=== PATIENT | female | born 1990 | race Two or more races ===

== ENCOUNTER 2018-03-19 08:59 | Emergency (ER) | payer OTHER ==
[~2018-03-19] VITALS: Ht 165.1 cm; Wt 68.0 kg
--- NOTE | 2018-03-19 09:00 | NUR ---
ED Nurse Note: Pt came from home due to Chest pain on Lt side x 2 days, get worse with movement of arm, coughing. denies SOB.
[2018-03-19 09:06] VITALS: BP 109/51
[2018-03-19] MEDS ORDERED: Methocarbamol 750mg tab ORAL ONE (09:30)
[2018-03-19] MEDS ORDERED: Acetaminophen 500mg (ES) tab ORAL ONE (09:30)
[2018-03-19] MEDS ORDERED: ROBAXIN-750750 MG PO (09:34)
[2018-03-19] MEDS ORDERED: TYLENOL EXTRA500 MG ORAL (09:34)
--- NOTE | 2018-03-19 09:54 | NUR ---
ED Nurse Note: patient is being discharged, cleared by ERMBryn, Dr. Solomon. Discharge instructions/paper/prescription given to the patient, patient verbalized understanding, signed paper. a/o x4. All belongings taken with the patient. patient is ambulatory, steady gait. ID band removed.
--- NOTE | 2018-03-19 10:15 | Emergency Room Report ---
History of Present Illness General Chief Complaint: Chest Pain Source: Patient Present Illness HPI 27-year-old female presents ED complaining of chest pain. Started 2 days ago. Left-sided, sharp, radiating to the shoulder, 9 out of 10. Worse with deep breaths. Denies smoking or drug use. Denies fevers or chills. Denies cough. Denies leg swelling. No other aggravating relieving factors. Denies any other associated symptoms Allergies: Coded Allergies: No Known Allergies (Unverified , 03/19/18) Patient History Past Medical History: none Past Surgical History: none Pertinent Family History: none Social History: Denies: smoking, alcohol use, drug use Now: No Immunizations: UTD Reviewed Nursing Documentation: PMH: Agreed; PSxH: Agreed Nursing Documentation-PMH Past Medical History: No Stated History Review of Systems All Other Systems: negative except mentioned in HPI Physical Exam Vital Signs Date Time Temp Pulse Resp B/P (MAP) Pulse Ox O2 Delivery O2 Flow Rate FiO2 03/19/18 09:00 98.4 95 20 109/51 99 Room Air Sp02 EP Interpretation: reviewed, normal General Appearance: no apparent distress, alert, GCS 15, non-toxic Head: normocephalic Eyes: bilateral eye normal inspection, bilateral eye PERRL ENT: normal ENT inspection Neck: normal inspection Respiratory: lungs clear, normal breath sounds, speaking full sentences, other - reproducible L anterior chest wall pain Cardiovascular #1: regular rate, rhythm, no edema Gastrointestinal: normal inspection Rectal: deferred Genitourinary: no CVA tenderness Musculoskeletal: normal inspection Neurologic: alert, oriented x3, responsive, motor strength/tone normal, sensory intact, speech normal Psychiatric: normal inspection Skin: normal inspection Lymphatic: normal inspection Medical Decision Making Diagnostic Impression: Primary Impression: Chest wall pain ER Course Hospital Course 27-year-old female presents ED complaining of reproducible chest wall pain Differential diagnoses include: Rib fracture, TN/unstable angina, contusion, muscle strain Clinical course Patient placed on stretcher. After initial history, physical exam reveals a young female in no acute distress. There is reproducible left-sided anterior rib pain radiating through the shoulder. No bruising or crepitus. Lungs clear. Vital stable. Patient has no cardiac risk factors. PERC/well's criteria negativeno suspicion for PE EKGnormal sinus rhythm no acute ischemic changes interpreted by me Exam clinically correlating for muscular pain. No suspicion for cardiac. Discussed findings with patient. Reassurance given. Patient given tylenol/ robaxin for pain Safe for discharge close outpatient follow-up. We'll provide clinic referrals I. I feel this is a highly complex case requiring extensive working including EKG/Rhythm strip, Xray/CT/US, Blood/urine lab work, repeat exams while in ED, and administration of strong opiates/narcotics for pain control, admission to hospital or close patient follow up. Diagnosis - chest wall pain Stable and discharged to home with prescription for tylenol/robaxin. Instructed to followup with PMD. Return to ED if symptoms recur or worsen EKG Diagnostic Results Rate: normal Rhythm: NSR ST Segments: no acute changes ASA given to the pt in ED: No Rhythm Strip Diag. Results EP Interpretation: yes Rhythm: NSR, no PVC's, no ectopy Last Vital Signs Date Time Temp Pulse Resp B/P (MAP) Pulse Ox O2 Delivery O2 Flow Rate FiO2 03/19/18 09:52 98.4 95 14 109/57 99 Room Air Status: improved Disposition: HOME, SELF-CARE Condition: Stable Scripts Methocarbamol* (ROBAXIN-750*) 750 Mg Tablet 750 MG PO TID, #21 TAB 0 Refills Prov: Phi Solomon MD 03/19/18 Acetaminophen* (TYLENOL EXTRA STRENGTH*) 500 Mg Tablet 500 MG ORAL Q8H PRN for Prn Headache/Temp > 101, #30 TAB 0 Refills Prov: Phi Solomon MD 03/19/18 Referrals: [facility] Patient Instructions: Chest Wall Pain, Icpi-gq-Qhla Phi Solomon MD Mar 19, 2018 10:15
== END 2018-03-19 09:50 | disposition home or self-care (01) ==
LOC: EMR 09:40
DX: R07.9 Chest pain, unspecified (principal); M25.512 Pain in left shoulder
CPT/HCPCS: 99283

== ENCOUNTER 2018-04-15 20:39 | Emergency (ER) | payer OTHER ==
[~2018-04-15] VITALS: Ht 165.1 cm; Wt 59.0 kg
[~2018-04-15 20:39] MED LIST: ROBAXIN-750750 MG PO; TYLENOL EXTRA500 MG ORAL
[2018-04-15 20:55] VITALS: BP 107/58
--- NOTE | 2018-04-15 21:00 | NUR ---
ED Nurse Note: c/o flu like s/s x 3days (cough, Tubbs, nasal congestion, sorethroat, cp when cough) pt admits to vomiting times 1 when she cough. pt admits to diahhrea. pt presents with occational cough that is somtimes productive with phlegm like appearance. pt is alert and oriented times 4. pt is able to ambulate. skin does not tent. additionally, pt states that she has generalized body pain.
[2018-04-15] MEDS ORDERED: PREDNISONE20 MG ORAL (21:10)
[2018-04-15] MEDS ORDERED: PROMETH-CODEIN 65 ML PO (21:10)
[2018-04-15] MEDS ORDERED: ALBUTEROL SULF8.5 GM INH (21:10)
--- NOTE | 2018-04-15 21:10 | Emergency Room Report ---
History of Present Illness General Chief Complaint: Flu Like Symptoms Source: Patient Present Illness HPI Is a 27-year-old female with no past medical history. She presents with chief point of coughing congestion. Onset for last 3 days. Unable to sleep because of coughing. Hken-pqr-[id number] medicine is not helping. Has chest pain because of the coughing. Worse with inspiration. Worse with lying flat. No history of asthma. Allergies: Coded Allergies: No Known Allergies (Unverified , 04/15/18) Patient History Past Medical History: none, see triage record, old chart reviewed Past Surgical History: none Pertinent Family History: none Social History: Denies: smoking Last Menstrual Period: 04/13/2018 Now: No : 0 Para: 0 Immunizations: other Reviewed Nursing Documentation: PMH: Agreed; PSxH: Agreed Nursing Documentation-PMH Past Medical History: No Stated History Review of Systems Eye: Denies: eye pain, blurred vision ENT: Reports: nose congestion, throat pain; Denies: ear pain, throat swelling Respiratory: Reports: cough, shortness of breath Cardiovascular: Denies: chest pain, palpitations Gastrointestinal: Denies: abdominal pain, diarrhea, nausea, vomiting Musculoskeletal: Denies: back pain, joint pain Skin: Denies: rash Neurological: Denies: headache, numbness Endocrine: Denies: increased thirst, increased urine Hematologic/Lymphatic: Denies: easy bruising All Other Systems: negative except mentioned in HPI Physical Exam Vital Signs Date Time Temp Pulse Resp B/P (MAP) Pulse Ox O2 Delivery O2 Flow Rate FiO2 04/15/18 20:45 98.2 82 18 107/58 96 Room Air vitals normal Sp02 EP Interpretation: reviewed, normal General Appearance: well appearing, no apparent distress, alert Head: normocephalic, atraumatic Eyes: bilateral eye PERRL, bilateral eye EOMI ENT: hearing grossly normal, normal pharynx Neck: full range of motion, supple, no meningismus Respiratory: chest non-tender, other - Coughing fits with inspiration Cardiovascular #1: regular rate, rhythm, no murmur Gastrointestinal: normal bowel sounds, non tender, no mass, no organomegaly, no bruit, non-distended Musculoskeletal: back normal, gait/station normal, normal range of motion Psychiatric: mood/affect normal Skin: warm/dry Medical Decision Making Diagnostic Impression: Primary Impression: Acute bronchospasm due to viral infection ER Course Patient with a viral illness with bronchospasm. No evidence of pneumonia, ACS, PE, dissection to name a few. We'll discharge home. Last Vital Signs Date Time Temp Pulse Resp B/P (MAP) Pulse Ox O2 Delivery O2 Flow Rate FiO2 04/15/18 20:45 98.2 82 18 107/58 96 Room Air Status: improved Disposition: HOME, SELF-CARE Condition: Stable Scripts Promethazine HCl/Codeine (Prometh-Codein 6.25-10 mg/5 ml) 5 Ml Syrup 5 ML PO Q6HR, #120 ML Prov: Ollie Kaur MD 04/15/18 Prednisone* (PREDNISONE*) 20 Mg Tablet 40 MG ORAL DAILY, #8 TAB Prov: Ollie Kaur MD 04/15/18 Albuterol Sulfate* (ALBUTEROL SULFATE MDI*) 8.5 Gm Hfa.aer.ad 2 PUFF INH Q4H PRN for cough/wheezing, #1 EA 0 Refills Prov: Ollie Kaur MD 04/15/18 Additional Instructions: Increase fluids. Follow-up with your doctor in 7 days. Return if worse. Ollie Kaur MD Apr 15, 2018 21:10
[2018-04-15] MEDS ORDERED: Albuterol ud Inhalation HHN ONE (21:15)
[2018-04-15 22:12] VITALS: BP 103/60
--- NOTE | 2018-04-15 22:16 | NUR ---
ED Nurse Note: Pt is DC per ERMD orders. pt is alert and oriented times 4 and understands all DC notes and instructions. pt is instructed to follow up with main provider as soon as possible. pt is instructed to return to ER if any variance in condition. pt left with all belongings as well as DC notes and instructions. pt vital signs, condition and status is reported to ERMD prior to DC. pt is stable for DC. pt vital signs is stable. pt is able to ambulate. pt ID band removed.
[2018-04-15 22:17] VITALS: BP 103/60
[2018-04-16] MEDS ORDERED: TESSALON PERLE100 MG ORAL (19:07)
[2018-04-16] MEDS ORDERED: IBUPROFEN600 MG ORAL (19:07)
[2018-04-16] MEDS ORDERED: CEPHALEXIN500 MG ORAL (19:07)
[2018-04-16] MEDS ORDERED: NKM ×2 (22:38→23:13)
== END 2018-04-15 22:15 | disposition home or self-care (01) ==
LOC: EMR 21:07
DX: B34.9 Viral infection, unspecified (principal); J98.01 Acute bronchospasm
CPT/HCPCS: 94640; 94664; 99284; J7512

== ENCOUNTER 2018-04-16 16:12 | Inpatient (IN) | payer OTHER ==
[~2018-04-16] VITALS: Ht 165.1 cm; Wt 70.8 kg
[~2018-04-16 16:12] MED LIST changes: +ALBUTEROL SULF8.5 GM INH; +PREDNISONE20 MG ORAL; +PROMETH-CODEIN 65 ML PO
--- NOTE | 2018-04-16 16:24 | NUR ---
ED Nurse Note: patient walked into ED c/o flu like symptom, coughing, nasal congestion, sorethroat and cp when coughing, for 3 days. pt is alert and oriented times 4. pt is able to ambulate. patient has generalized body pain.
[2018-04-16 16:38] VITALS: BP 98/56
[2018-04-16] MEDS ORDERED: Methocarbamol 500mg tab ORAL ONE (16:45)
[2018-04-16] MEDS ORDERED: Albuterol ud Inhalation HHN ONE (16:45)
--- NOTE | 2018-04-16 17:05 | Emergency Room Report ---
History of Present Illness General Chief Complaint: Flu Like Symptoms Source: Patient (Jean Paula) Present Illness HPI 27-year-old female patient presents the ER complaining of cough and congestion for the past 3 days. Patient was seen here in the ER yesterday for similar symptoms. Reports symptoms still present today. Reports took medication yesterday as previously instructed. Patient currently febrile in the ER. States did not take any Tylenol. Denies recent travel. Denies history of asthma. Denies hemoptysis. Reports sore throat. Reports chest pain with cough. reports pain is reproducible. Denies history of heart attack. Denies history of heart disease. Denies other aggravating or relieving factors. (Jean Paula) Allergies: Coded Allergies: No Known Allergies (Unverified , 04/15/18) Patient History Past Medical History: see triage record Now: No Reviewed Nursing Documentation: PMH: Agreed; PSxH: Agreed (Jean Paula) Nursing Documentation-PMH Past Medical History: No Stated History (Jean Paula) Review of Systems All Other Systems: negative except mentioned in HPI (Jean Paula) Physical Exam Vital Signs Date Time Temp Pulse Resp B/P (MAP) Pulse Ox O2 Delivery O2 Flow Rate FiO2 04/16/18 16:18 100.2 100 22 98/56 98 Room Air Sp02 EP Interpretation: reviewed, normal General Appearance: well appearing, no apparent distress, alert, GCS 15, non- toxic Head: normocephalic, atraumatic Eyes: bilateral eye normal inspection, bilateral eye PERRL ENT: hearing grossly normal, normal pharynx, no angioedema, normal voice, uvula midline, moist mucus membranes Neck: full range of motion Respiratory: lungs clear, normal breath sounds, no rhonchi, no respiratory distress, no accessory muscle use, no wheezing, speaking full sentences, other - Chest tender to palpation, no flail chest, no deformity Cardiovascular #1: regular rate, rhythm, no edema Gastrointestinal: non tender, soft, no mass, non-distended, no guarding, no rebound Musculoskeletal: back normal, digits/nails normal, gait/station normal, normal range of motion, non-tender Neurologic: alert, oriented x3, responsive, motor strength/tone normal, sensory intact Psychiatric: mood/affect normal Skin: no rash (Jean Paula) Medical Decision Making PA Attestation Dr. Espino is my supervising Physician whom patient management has been discussed with. (Jean Paula) Diagnostic Impression: Primary Impression: Influenza-like symptoms Additional Impressions: Urinary tract infection Hypotension Bronchitis ER Course Pt. presents to the ED c/o cough, congestion, flulike symptoms, generalized muscle aches and pains. Ddx considered but are not limited to influenza, viral URI, pericarditis, costochondritis, pneumonia, UTI, dehydration, anemia. Vital signs: are WNL, pt. is afebrile ER COURSE: Provided with Motrin and Robaxin due to patient complaints of muscle pain. Provided with breathing treatment. Reports breathing symptoms improved. CBC and CMP unremarkable UA shows likely UTI, will provide with Rocephin in the ER.. Influenza swab negative. Chest x-ray shows no focal consolidation consistent with pneumonia. Does not require antibiotics at this time for treating pneumonia. Patient seen and evaluated by Dr. Espino, agrees with assessment and treatment plan. - Please note that this Emergency Department Report was dictated using [employer] assembly supervisor technology software, occasionally this can lead to erroneous entry secondary to interpretation by the dictation equipment. Labs Test 04/16/18 17:05 White Blood Count 9.4 K/UL (4.8-10.8) Red Blood Count 4.61 M/UL (4.20-5.40) Hemoglobin 13.3 G/DL (12.0-16.0) Hematocrit 41.1 % (37.0-47.0) Mean Corpuscular Volume 89 FL (80-99) Mean Corpuscular Hemoglobin 28.8 PG (27.0-31.0) Mean Corpuscular Hemoglobin Concent 32.3 G/DL (32.0-36.0) Red Cell Distribution Width 12.8 % (11.6-14.8) Platelet Count 203 K/UL (150-450) Mean Platelet Volume 6.8 FL (6.5-10.1) Neutrophils (%) (Auto) 81.2 % (45.0-75.0) Lymphocytes (%) (Auto) 12.6 % (20.0-45.0) Monocytes (%) (Auto) 5.2 % (1.0-10.0) Eosinophils (%) (Auto) 0.1 % (0.0-3.0) Basophils (%) (Auto) 0.9 % (0.0-2.0) Urine Color Yellow Urine Appearance Cloudy Urine pH 6 (4.5-8.0) Urine Specific [place] 1.020 (1.005-1.035) Urine Protein 2+ (NEGATIVE) Urine Glucose (UA) Negative (NEGATIVE) Urine Ketones 1+ (NEGATIVE) Urine Blood 1+ (NEGATIVE) Urine Nitrite Negative (NEGATIVE) Urine Bilirubin Negative (NEGATIVE) Urine Urobilinogen 1 MG/DL (0.0-1.0) Urine Leukocyte Esterase 3+ (NEGATIVE) Urine RBC 2-4 /HPF (0 - 2) Urine WBC 30-40 /HPF (0 - 2) Urine Squamous Epithelial Cells Moderate /LPF (NONE/OCC) Urine Bacteria Many /HPF (NONE) Urine HCG, Qualitative Negative (NEGATIVE) Sodium Level 139 MMOL/L (136-145) Potassium Level 3.7 MMOL/L (3.5-5.1) Chloride Level 104 MMOL/L (98-107) Carbon Dioxide Level 26 MMOL/L (21-32) Anion Gap 9 mmol/L (5-15) Blood Urea Nitrogen 4 mg/dL (7-18) Creatinine 1.0 MG/DL (0.55-1.30) Estimat Glomerular Filtration Rate > 60 mL/min (>60) Glucose Level 106 MG/DL (74-106) Calcium Level 8.6 MG/DL (8.5-10.1) Total Bilirubin 0.2 MG/DL (0.2-1.0) Aspartate Amino Transf (AST/SGOT) 16 U/L (15-37) Alanine Aminotransferase (ALT/SGPT) 18 U/L (12-78) Alkaline Phosphatase 73 U/L (46-116) Total Protein 7.3 G/DL (6.4-8.2) Albumin 3.7 G/DL (3.4-5.0) Globulin 3.6 g/dL Albumin/Globulin Ratio 1.0 (1.0-2.7) (Jean Paula P.A.) ER Course Patient was noted to have initial hypotension tachycardia. She appears to have a flulike illness. CT of the chest read by radiology showed no evidence of acute aortic dissection or pulmonary embolism . Dr. Pranav Shepherd was contacted for inpatient management due to panel physician and persistent tachycardia (Jesse Espino MD) EKG Diagnostic Results Rate: tachycardiac Rhythm: NSR ST Segments: no acute changes ASA given to the pt in ED: No PA Scribe Text Joseph Paula PA-C (Nisa,Jean P.A.) Rhythm Strip Diag. Results EP Interpretation: yes Rate: 114 Rhythm: NSR, no PVC's, no ectopy PA Scribe Text Joseph SYLVESTER-C (Nisa,Jean P.A.) Chest X-Ray Diagnostic Results Chest X-Ray Diagnostic Results : Chest X-Ray Ordered: Yes # of Views/Limited/Complete: 1 View Indication: Chest Pain EP Interpretation: Yes PA Xray: Interpretation reviewed, by supervising MD, and agrees with findings. Interpretation: no consolidation, no effusion, no pneumothorax, no acute cardiopulmonary disease Impression: No acute disease PA Scribe Text Joseph SYLVESTER-Charlie (NisaJean P.A.) Last Vital Signs Date Time Temp Pulse Resp B/P (MAP) Pulse Ox O2 Delivery O2 Flow Rate FiO2 04/16/18 16:38 100.2 100 22 98/56 98 Room Air (Jean Paula P.A.) Status: improved (Jesse Espino MD) Disposition: ADMITTED INPATIENT Condition: Serious Patient Instructions: Influenza, Adult, Mrde-vq-Oiht, Urinary Tract Infection, [id number] Jean Paula P.A. Apr 16, 2018 17:05 Jesse Espino MD Apr 16, 2018 22:21
[2018-04-16 17:14] LABS: APPEARANCE,URINE CLOUDY; BASOPHILS % (AUTO) 0.9 % (0.0-2.0); BILIRUBIN, URINE NEGATIVE (NEGATIVE); COLOR,URINE YELLOW; EOSINOPHILS % (AUTO) 0.1 % (0.0-3.0); GLUCOSE, URINE (UA) NEGATIVE (NEGATIVE); HEMATOCRIT 41.1 % (37.0-47.0); HEMOGLOBIN 13.3 G/DL (12.0-16.0); KETONES,URINE 1+ (NEGATIVE); LEUKOCYTE ESTERASE ,URINE 3+ (NEGATIVE); LYMPHOCYTES % (AUTO) 12.6 % (20.0-45.0); MEAN CORPUSCULAR VOLUME 89 FL (80-99); MONOCYTES % (AUTO) 5.2 % (1.0-10.0); NEUTROPHILS % (AUTO) 81.2 % (45.0-75.0); NITRITE,URINE NEGATIVE (NEGATIVE); PH,URINE 6 (4.5-8.0); PLATELET COUNT 203 K/UL (150-450); PROTEIN,URINE 2+ (NEGATIVE); RED BLOOD COUNT 4.61 M/UL (4.20-5.40); RED CELL DISTRIBUTION WIDTH 12.8 % (11.6-14.8); UROBILINOGEN,URINE 1 MG/DL (0.0-1.0); WHITE BLOOD COUNT 9.4 K/UL (4.8-10.8)
[2018-04-16 17:27] LABS: ANION GAP 9 mmol/L (5-15); BLOOD UREA NITROGEN 4 mg/dL (7-18); CALCIUM 8.6 MG/DL (8.5-10.1); CARBON DIOXIDE 26 MMOL/L (21-32); CHLORIDE 104 MMOL/L (98-107); POTASSIUM 3.7 MMOL/L (3.5-5.1); SODIUM 139 MMOL/L (136-145)
[2018-04-16 17:32] LABS: ALANINE AMINOTRANSFERASE 18 U/L (12-78); ALBUMIN 3.7 G/DL (3.4-5.0); ALKALINE PHOSPHATASE 73 U/L (46-116); ASPARTATE AMINO TRANSFERASE 16 U/L (15-37); BILIRUBIN,TOTAL 0.2 MG/DL (0.2-1.0)
[2018-04-16] MEDS ORDERED: TESSALON PERLE100 MG ORAL (19:07)
[2018-04-16] MEDS ORDERED: CEPHALEXIN500 MG ORAL (19:07)
[2018-04-16] MEDS ORDERED: IBUPROFEN600 MG ORAL (19:07)
[2018-04-16 19:13] VITALS: BP 87/47
--- NOTE | 2018-04-16 19:20 | NUR ---
HAND-OFF: Report given to Ene SCHUSTER.
--- NOTE | 2018-04-16 19:25 | NUR ---
ED Nurse Note: pt was transfered to monitor bed, pt connected to monitor. report given to vinh kebede
[2018-04-16] MEDS ORDERED: cefTRIAXone 1 GM in NS 55 ML IVPB ONE (19:30)
[2018-04-16] MEDS ORDERED: Isovue-370 150ml vial INJ PRN (20:00)
[2018-04-16 20:20] VITALS: BP 99/56
--- NOTE | 2018-04-16 20:30 | NUR ---
ED Nurse Note: Pt went to CT scan.
--- NOTE | 2018-04-16 21:00 | NUR ---
ED Nurse Note: PT C/O THROAT PAIN 09/24 NOTIFIED NGA BURDEN WAITING FOR NEW ORDERS
[2018-04-16] MEDS ORDERED: Lidocaine 2% Visc 15ml soln ORAL ONE (21:15)
[2018-04-16 21:19] VITALS: BP 107/69
--- NOTE | 2018-04-16 21:30 | NUR ---
ED Nurse Note: ATTEMPTED TO GIVE TELEPHONE REPORT, PER ANUP RN CALL BACK IN 5 MIN
--- NOTE | 2018-04-16 21:40 | NUR ---
ED Nurse Note: TELEPHONE REPORT GIVEN TO LANDEN HEBERT. PER LANDEN HEBERT BED WILL BE READY IN 10 MIN Addendum: 04/16/18 at 2240 by PDELEON ED Nurse Note: PT NO LONGER GOING TO TELE.
[2018-04-16] MEDS ORDERED: NKM ×2 (22:38→23:13)
--- NOTE | 2018-04-16 22:41 | NUR ---
ED Nurse Note: TELEPHONE REPORT GIVEN TO LANDEN LI.
--- NOTE | 2018-04-16 22:45 | NUR ---
NURSE NOTES: Received the report from LANDEN Kaufman. Waiting for the pt's arrival.
--- NOTE | 2018-04-16 22:55 | NUR ---
ED Nurse Note: PT WAS SENT UP WITH LANDEN EVANS PT IS STABLE AOX4, BP WAS 108/72 HR 103 ALL BELONGING WITH PT. PT SKIN INTACT, NO DISTRESS
--- NOTE | 2018-04-16 23:00 | NUR ---
NURSE NOTES: Pt has arrived in the unit. Pt is in stable condition. AAOX4. Able to make needs known. C/o generalized pain, rated 7/10. IV site is patent and intact. Skin is intact. Bed in lowest position. Bed alarm is on. Call light within reach. Will continue to monitor.
[2018-04-16 23:33] VITALS: BP 109/72
[2018-04-17] VITALS (7 sets, daily range): BP systolic 95–123; BP diastolic 60–75
[2018-04-17] MEDS: Azithromycin 500 MG in D5W 275 ML IV SCH ×2
--- NOTE | 2018-04-17 | NUR ---
NURSE NOTES: NURSE NOTES: Sudafed not given, because the med is not available in the hospital. Talked to [facility] pharmacist, she suggested to wait for the hospital pharmacy to open to ask for alternative medication. Charge Nurse Kathi made aware.
[2018-04-17] MEDS: NS w/KCl 20mEq 1,000 ML IV SCH ×2 (01:07→10:08)
[2018-04-17] MEDS: Albuterol/Ipratropium 3ml neb HHN SCH ×6 (03:45→23:00)
[2018-04-17] MEDS: Pseudoephedrine 30mg tab ORAL SCH ×3 (06:57→11:50)
--- NOTE | 2018-04-17 07:44 | NUR ---
HAND-OFF: Report given to LANDEN Wood. LANDEN Huynh endorsed to LANDEN Wood to follow up with the code status of the pt.
--- NOTE | 2018-04-17 07:49 | NUR ---
NURSE NOTES: Received pt from LANDEN SZYMANSKI. Pt is alert and orient x4. No SOB or acute respiratory distress noted. pt has intact iv access RAC 20G is running well. all needs attended, bed is locked and is in the lowest position, call light within easy reach. will continue to monitor.
--- NOTE | 2018-04-17 08:30 | NUR ---
NURSE NOTES: Called Dr kellogg regarding V/S and T and HR, left6 massage waiting to call back. will continue to monitor.
[2018-04-17] MEDS: Heparin 5000 units/ml inj SUBQ SCH ×2 (08:47→20:29)
--- NOTE | 2018-04-17 09:11 | Diagnostic Imaging Report ---
Indication: Chest pain Technique: One view of the chest Comparison: none Findings: Lungs and pleural spaces are clear. Heart size is normal Impression: No acute process This agrees with the preliminary interpretation provided overnight by [facility] teleradiology service.
[2018-04-17 09:15] LABS: BASOPHILS % (AUTO) 0.7 % (0.0-2.0); EOSINOPHILS % (AUTO) 0.1 % (0.0-3.0); HEMATOCRIT 37.3 % (37.0-47.0); MEAN CORPUSCULAR VOLUME 89 FL (80-99); MONOCYTES % (AUTO) 10.1 % (1.0-10.0); NEUTROPHILS % (AUTO) 63.2 % (45.0-75.0); PLATELET COUNT 151 K/UL (150-450); RED BLOOD COUNT 4.21 M/UL (4.20-5.40); RED CELL DISTRIBUTION WIDTH 13.3 % (11.6-14.8); WHITE BLOOD COUNT 5.1 K/UL (4.8-10.8)
[2018-04-17 09:22] LABS: ALANINE AMINOTRANSFERASE 43 U/L (12-78); ALBUMIN 3.1 G/DL (3.4-5.0); ALBUMIN/GLOBULIN RATIO 1.1 (1.0-2.7); ALKALINE PHOSPHATASE 64 U/L (46-116); ANION GAP 9 mmol/L (5-15); ASPARTATE AMINO TRANSFERASE 60 U/L (15-37); BILIRUBIN,TOTAL 0.3 MG/DL (0.2-1.0); BLOOD UREA NITROGEN 3 mg/dL (7-18); CALCIUM 8.2 MG/DL (8.5-10.1); CARBON DIOXIDE 25 MMOL/L (21-32); CHLORIDE 105 MMOL/L (98-107); CREATININE 0.7 MG/DL (0.55-1.30); POTASSIUM 3.5 MMOL/L (3.5-5.1); SODIUM 138 MMOL/L (136-145)
--- NOTE | 2018-04-17 10:15 | NUR ---
NURSE NOTES: HR 102/110 T 100.6, Called Dr kellogg again spoke with bjorn KILPATRICK, left massage waiting to call back. will continue to monitor.
--- NOTE | 2018-04-17 10:40 | NUR ---
NURSE NOTES: Dr kellogg called back and he is aware about V/S , No new order. will continue to monitor.
--- NOTE | 2018-04-17 11:31 | Diagnostic Imaging Report ---
ndication: Chest pain Technique: IV administration nonionic contrast. Spiral acquisitions obtained from the lung bases to the lung apices. Multiplanar and 3-D reconstructions were generated. Total dose length product 556.74 mGycm. CTDIvol(s) 18.92 mGy. Dose reduction achieved using automated exposure control Comparison: none Findings: Pulmonary arterial opacification is adequate. No intraluminal filling defects or other findings to suggest acute pulmonary embolus demonstrated. No pulmonary arterial dilatation or right ventricular dilatation. Normal heart size. No evidence of thoracic aortic aneurysm or dissection. Normal branching anatomy of the great neck vessels. The included lung bases demonstrate posterior dependent atelectatic changes. No infiltrates, effusions, masses, or nodules. No pericardial effusion. No mediastinal or hilar mass or adenopathy. No axillary or chest wall mass or adenopathy. Included upper abdominal anatomy is unremarkable Impression: Negative for acute pulmonary embolus or other acute thoracic pathology Posterior dependent atelectatic changes This agrees with the preliminary interpretation provided overnight by Dr. Burnham The CT scanner at [facility] is accredited by the [employer] and the scans are performed using protocols designed to limit radiation exposure to as low as reasonably achievable to attain images of sufficient resolution adequate for diagnostic evaluation.
[2018-04-17] MEDS ORDERED: Guaifenesin/DM 10ml syrup ORAL PRN (14:00)
--- NOTE | 2018-04-17 15:19 | Cardiology Report ---
APPROVED REPORT EKG Measurement Heart [id number] Sinus tachycardia Otherwise normal ECG
--- NOTE | 2018-04-17 16:45 | Consultation ---
DATE OF CONSULTATION: 04/17/2018 INFECTIOUS DISEASES CONSULTATION This consult is for coverage of Dr. Barton. CONSULTING PHYSICIAN: Narendra Chowdhury M.D. PRIMARY ATTENDING PHYSICIAN: Pranav Shepherd M.D. REASON FOR CONSULTATION: UTI, bronchitis, upper respiratory infection. HISTORY OF PRESENT ILLNESS: This is a 27-year-old female admitted yesterday from home complaining of cough, congestion, sore throat. The patient's symptoms started three days before admission, started to have fever up to 102.6 in the hospital. PAST MEDICAL HISTORY: Insignificant. MEDICATIONS: Getting ceftriaxone, heparin, albuterol ipratropium inhaler, azithromycin, Tylenol, Sudafed, sodium chloride. ALLERGIES: No known drug allergies. SOCIAL HISTORY: Originally from [place] [facility], student, studies Business. Smoker. Occasionally drinks alcohol. Single,. REVIEW OF SYSTEMS: Have headache, sore throat, stuffy nose, coughing that is productive. No nausea. No vomiting. No diarrhea. No dysuria. PHYSICAL EXAMINATION: VITAL SIGNS: Temperature 99.9, pulse 110, blood pressure 105/61. GENERAL APPEARANCE: Seems normal weight. Awake, alert, oriented x3. HEAD AND NECK: Hypertrophy of nasal mucosa. HEART: Tachycardic, regular. LUNGS: Clear. ABDOMEN: Soft and nontender. EXTREMITIES: No edema. NEUROLOGIC: Awake, alert, oriented x3. No focal weakness. LABORATORY AND DIAGNOSTIC DATA: WBC 5.1, hemoglobin 12, hematocrit 37.3, platelets 151. Sodium 138, potassium 3.5, chloride 105, bicarbonate 25, BUN 3, creatinine 0.7, AST 60. Albumin 3.1. The patient had CT scan of the chest to rule out pulmonary emboli that showed atelectasis, otherwise was negative. UA showed WBC of 30 to 40, leukocyte esterase 3+, protein 2+. IMPRESSION: Pyuria may have urinary tract infection, upper respiratory infection, likely bronchitis without pneumonia, had fever. RECOMMENDATION: We will continue with ceftriaxone, Zithromax, and bronchodilator. At the end of my exam, I thank Dr. Shepherd, for involving me in the care of this patient. Narendra Chowdhury M.D. DR: Jyothi JOB#: [id number] CC: CALLIE
--- NOTE | 2018-04-17 17:00 | History and Physical Report ---
DATE OF ADMISSION: 04/16/2018 REASON FOR ADMISSION: Fevers, chills, cough, and shortness of breath. HISTORY OF PRESENT ILLNESS: This 27-year-old female returned to the emergency room on the day of admission complaining of worsening cough and congestion. She was seen at this facility yesterday and sent home on oral therapy. Her symptoms have been ongoing for three days and have not improved. She has high fevers and congestion with cough and scant sputum production. She also has a sore throat, but no other constitutional symptoms. She denies any abdominal pain, nausea, or vomiting. No diarrhea. She has not taken any antipyretics at home and she denies any exposure to ill contacts or recent travel. ALLERGIES: None. MEDICATIONS: None. PAST MEDICAL HISTORY: Unremarkable. SOCIAL HISTORY: Negative for smoking, alcohol, or substance abuse. REVIEW OF SYSTEMS: A 10-point system review was otherwise negative. PHYSICAL EXAMINATION: VITAL SIGNS: Blood pressure 98/56, heart rate 100, respiratory rate 22, temperature 100.2, oxygen sats 98%. GENERAL: Ill appearing. HEENT: Mild tenderness in the sinus region. Injected oropharynx with no exudate or thrush. NECK: Supple with no adenopathy. LUNGS: Few rhonchi. No wheezing. CARDIAC: Regular rhythm. Rapid rate. Normal S1, S2. No murmur. ABDOMEN: Soft and nontender. EXTREMITIES: No edema. SKIN: Without rash. NEUROLOGIC: Nonfocal. DIAGNOSTIC AND LABORATORY DATA: Influenza swab was negative. Chest x-ray with no acute process. White count 9.4, hemoglobin 13.3. Urinalysis with 30 to 40 white cells. Chemistry panel within normal limits. EKG, sinus tachycardia. IMPRESSION: 1. Upper respiratory infection likely bronchitis possible sinusitis. 2. Urinary tract infection. 3. Hypovolemia. 4. Dehydration. 5. Secondary sinus tachycardia. PLAN: 1. Antipyretic. 2. Ochoa culture. 3. Broad-spectrum empiric antibiotics. 4. Imaging of the sinuses to follow. 5. DVT prophylaxis. 6. Antitussives. 7. Decongestants. Pranav Shepherd M.D. DR: KALIA JOB#: [id number] CC:
--- NOTE | 2018-04-17 17:06 | Diagnostic Imaging Report ---
Indications: Flulike symptoms, coughing, nasal congestion Technique: Spiral images obtained through the facial bones. No IV contrast utilized, reason not stated. Multiplanar reconstructions were generated.Total dose length product 559 mGycm. CTDIvol(s) 28 mGy. Dose reduction achieved using automated exposure control Comparison: none Findings: There is minimal anterior ethmoid sinus disease bilaterally. There is minimal mucosal thickening involving the medial right maxillary wall. Sinuses are otherwise clear. There is suggestion of mucosal thickening in the region of the maxillary ostia bilaterally, and patency cannot be confirmed. Unusual bone fragment is seen along the lateral aspect of the nasal bone on the left, could represent an old chip fracture. No acute fractures. No significant soft tissue swelling. The upper aerodigestive tract is unremarkable. The dentition is unremarkable. Impression: Minimal right maxillary and anterior ethmoid sinus mucosal thickening. There is mucosal thickening in the region of the bilateral maxillary ostia, and patency of these structures cannot be confirmed Possible old chip fracture along the lateral aspect of the nasal bone on the left The CT scanner at [facility] is accredited by the [employer] and the scans are performed using protocols designed to limit radiation exposure to as low as reasonably achievable to attain images of sufficient resolution adequate for diagnostic evaluation.
--- NOTE | 2018-04-17 17:30 | Progress Note ---
DATE: 04/17/2018 SUBJECTIVE: The patient continues to feel poorly with high fever spikes, chills, and tachycardia. No nausea or vomiting, still has a cough and congestion. OBJECTIVE: VITAL SIGNS: Blood pressure 95/60, pulse 110, temperature 102.6 max and now 100.6, oxygen saturation on room air is 92% to 99%. HEENT: Sinus tenderness. Oropharynx with mild injection. No thrush or exudate. LUNGS: Few rhonchi. No wheezing. CARDIAC: Regular rhythm. Rapid rate. Normal S1 and S2. ABDOMEN: Soft and nontender. EXTREMITIES: With no edema. There is no CVA tenderness. LABORATORY DATA: White count 5, hemoglobin 12. Chemistry panel within normal limits. Albumin 3.1. IMPRESSION: 1. Upper respiratory tract infection. 2. Acute bronchitis. 3. Possible sinusitis. 4. Urinary tract infection. 5. Mild protein-calorie malnutrition. 6. Fevers, likely viral syndrome. 7. Hypovolemia and dehydration. PLAN: 1. Continue IV fluid hydration. 2. Continue empiric antibiotics. 3. CT scan of the sinus pending. 4. Continue antitussive, antipyretics, and decongestant. 5. Infectious Diseases consultation was appreciated. Pranav Shepherd M.D. DR: Nydia JOB#: [id number] CC:
[2018-04-17] MEDS ORDERED: cefTRIAXone 1 GM in D5W 55 ML IVPB SCH (19:30)
--- NOTE | 2018-04-17 19:30 | NUR ---
NURSE NOTES: Received a report from LANDEN Wood. Pt is in stable condition. AAOX4. Able to make needs known. No respiratory distress noted. On room air. No c/o pain/discomfort. IV site is patent and intact. Bed in lowest position. Bed alarm is on. Call light within reach. Will continue to monitor.
--- NOTE | 2018-04-17 19:35 | NUR ---
HAND-OFF: Report given to LANDEN SZYMANSKI.
--- NOTE | 2018-04-17 19:47 | NUR ---
CASE MANAGEMENT: REVIEW PRESENTED TO ED FROM HOME CC: FLU LIKE SYMPTOMS . FEVER T 100.3 SI: HYPOTENSION . UTI T 101.2 HR 110 RR 28 BP 87/47 SAT 98% ROOM AIR NEUT 81.2 LYMPH 12.6 MONO 10.1 IS: TYLENOL PO X1 MOTRIN PO X1 NS IVF BOLUS X1 ALBUTEROL HHN X1 ROBAXIN PO X1 CEFTRIAXONE IV X1 PATIENT ADMITTED TO MED/SURG UNIT 04/16/2018 DCP: PATIENT IS FROM HOME
[2018-04-18] VITALS: BP 106/55
[2018-04-18] MEDS: NS w/KCl 20mEq 1,000 ML IV SCH ×4 (00:35→20:44)
[2018-04-18] MEDS: Azithromycin 500 MG in D5W 275 ML IV SCH (00:36)
[2018-04-18] MEDS: Albuterol/Ipratropium 3ml neb HHN SCH ×6 (03:00→22:49)
[2018-04-18 03:39] VITALS: BP 104/61
[2018-04-18] MEDS ORDERED: Pseudoephedrine 30mg tab ORAL PRN (06:00)
--- NOTE | 2018-04-18 06:39 | General Progress Note ---
Assessment/Plan Problem List: (1) Chest wall pain ICD Codes: R07.89 - Other chest pain SNOMED: 452773317 (2) Urinary tract infection ICD Codes: N39.0 - Urinary tract infection, site not specified SNOMED: 10970723 (3) Influenza-like symptoms ICD Codes: R68.89 - Other general symptoms and signs SNOMED: 267769828 (4) Bronchitis ICD Codes: J40 - Bronchitis, not specified as acute or chronic SNOMED: 81554911 (5) Hypotension ICD Codes: I95.9 - Hypotension, unspecified SNOMED: 09260613 Status: stable Assessment/Plan ivf abx follow up cultures supportive care Subjective ROS Limited/Unobtainable: No Constitutional: Reports: chills, fever, malaise, weakness HEENT: Reports: no symptoms Cardiovascular: Reports: no symptoms Respiratory: Reports: cough Gastrointestinal/Abdominal: Reports: no symptoms Genitourinary: Reports: no symptoms Neurologic/Psychiatric: Reports: no symptoms Endocrine: Reports: no symptoms Hematologic/Lymphatic: Reports: no symptoms Allergies: Coded Allergies: No Known Allergies (Unverified , 04/15/18) Subjective still does not feel well. +fevers. on abx. Ct noted- ?sinusitis. Objective Last 24 Hour Vital Signs Date Time Temp Pulse Resp B/P (MAP) Pulse Ox O2 Delivery O2 Flow Rate FiO2 04/18/18 04:14 99.1 04/18/18 03:39 100.8 83 18 104/61 (75) 99 04/18/18 03:10 Room Air 21 04/18/18 03:10 Room Air 21 04/18/18 00:00 97.9 92 18 106/55 (72) 95 04/17/18 23:37 Room Air 21 04/17/18 23:37 Room Air 21 04/17/18 21:00 Room Air 04/17/18 20:18 92 18 98 Room Air 21 04/17/18 20:17 92 18 96 Room Air 21 04/17/18 20:00 99.7 85 17 108/65 (79) 96 04/17/18 16:00 101.8 77 19 123/75 (91) 96 04/17/18 15:10 81 18 99 Room Air 21 04/17/18 14:54 83 18 99 Room Air 21 04/17/18 12:00 99.9 110 20 105/61 (76) 95 04/17/18 10:43 95 16 99 Room Air 21 04/17/18 10:34 99 18 92 Room Air 21 04/17/18 10:00 100.6 110 19 95/60 (72) 97 04/17/18 09:00 Room Air 04/17/18 08:00 102.6 120 19 95/60 (72) 98 04/17/18 07:24 90 16 99 Nasal Cannula 1.0 24 04/17/18 07:14 86 18 92 Room Air 21 Intake and Output 04/17/18 04/18/18 18:59 06:59 Intake Total 2080 ml 1465 ml Balance 2080 ml 1465 ml Intake Oral 880 ml 480 ml IV Total 1200 ml 985 ml # Voids 5 4 Laboratory Tests 04/17/18 07:20: White Blood Count 5.1, Red Blood Count 4.21, Hemoglobin 12.0, Hematocrit 37.3, Mean Corpuscular Volume 89, Mean Corpuscular Hemoglobin 28.4, Mean Corpuscular Hemoglobin Concent 32.0, Red Cell Distribution Width 13.3, Platelet Count 151, Mean Platelet Volume 8.1, Neutrophils (%) (Auto) 63.2, Lymphocytes (%) (Auto) 26.0, Monocytes (%) (Auto) 10.1H, Eosinophils (%) (Auto) 0.1, Basophils (%) ( Auto) 0.7, Sodium Level 138, Potassium Level 3.5, Chloride Level 105, Carbon Dioxide Level 25, Anion Gap 9, Blood Urea Nitrogen 3L, Creatinine 0.7, Estimat Glomerular Filtration Rate > 60, Glucose Level 91, Calcium Level 8.2L, Total Bilirubin 0.3, Aspartate Amino Transf (AST/SGOT) 60H, Alanine Aminotransferase ( ALT/SGPT) 43, Alkaline Phosphatase 64, Total Protein 6.0L, Albumin 3.1L, Globulin 2.9, Albumin/Globulin Ratio 1.1, Thyroid Stimulating Hormone (TSH) 1.743 Height (Feet): 5 Height (Inches): 5.00 Weight (Pounds): 156 General Appearance: WD/WN, alert Neck: supple Cardiovascular: regular rhythm Respiratory/Chest: lungs clear Abdomen: normal bowel sounds, non tender, soft, no organomegaly Edema: no edema noted Arm (L), no edema noted Arm (R), no edema noted Leg (L), no edema noted Leg (R), no edema noted Pedal (L), no edema noted Pedal (R), no edema noted Generalized Herbert Zhong MD Apr 18, 2018 06:39
--- NOTE | 2018-04-18 07:19 | NUR ---
HAND-OFF: Report given to Regi Waterman RN.
--- NOTE | 2018-04-18 07:25 | NUR ---
nurse notes received patient resting comfortably in bed, no sign of distress,denies pain or discomfort, IVF patent and infusing well, on fall precaution observed and maintained, plan of care was discussed verbalized understanding 4P's in progress call light w/n jalen hammer rn
[2018-04-18 07:37] LABS: EOSINOPHILS % (AUTO) 0.1 % (0.0-3.0); HEMATOCRIT 41.6 % (37.0-47.0); HEMOGLOBIN 13.5 G/DL (12.0-16.0); LYMPHOCYTES % (AUTO) 23.3 % (20.0-45.0); MEAN CORPUSCULAR VOLUME 88 FL (80-99); MONOCYTES % (AUTO) 6.1 % (1.0-10.0); NEUTROPHILS % (AUTO) 69.4 % (45.0-75.0); PLATELET COUNT 161 K/UL (150-450); RED BLOOD COUNT 4.71 M/UL (4.20-5.40); RED CELL DISTRIBUTION WIDTH 13.2 % (11.6-14.8); WHITE BLOOD COUNT 6.3 K/UL (4.8-10.8)
[2018-04-18 08:00] VITALS: BP 99/64
[2018-04-18 08:05] LABS: ALANINE AMINOTRANSFERASE 45 U/L (12-78); ALBUMIN 3.3 G/DL (3.4-5.0); ALKALINE PHOSPHATASE 65 U/L (46-116); ANION GAP 10 mmol/L (5-15); ASPARTATE AMINO TRANSFERASE 33 U/L (15-37); BILIRUBIN,TOTAL 0.3 MG/DL (0.2-1.0); BLOOD UREA NITROGEN 6 mg/dL (7-18); CALCIUM 8.6 MG/DL (8.5-10.1); CARBON DIOXIDE 26 MMOL/L (21-32); CHLORIDE 105 MMOL/L (98-107); CREATININE 0.7 MG/DL (0.55-1.30); SODIUM 141 MMOL/L (136-145)
[2018-04-18] MEDS: Heparin 5000 units/ml inj SUBQ SCH ×2 (08:41→20:43)
--- NOTE | 2018-04-18 10:47 | Infectious Diseases Prog Note ---
Assessment/Plan Assessment/Plan antibiotics : ceftriaxone, azithromycin A 1. fever 2. UTI 3. sinusitis P 1. d/c ceftriaxone, azithromycin 2. start cefepime 3. will follow up cultures Subjective Constitutional: Denies: fever, chills Respiratory: Reports: dry cough; Denies: shortness of breath Gastrointestinal/Abdominal: Reports: diarrhea; Denies: nausea, vomiting Musculoskeletal: Denies: pain Allergies: Coded Allergies: No Known Allergies (Unverified , 04/15/18) Objective Vital Signs Last 24 Hour Vital Signs Date Time Temp Pulse Resp B/P (MAP) Pulse Ox O2 Delivery O2 Flow Rate FiO2 04/18/18 08:55 Room Air 04/18/18 08:00 98.0 95 20 99/64 (76) 94 04/18/18 07:22 Room Air 21 04/18/18 07:22 Room Air 21 04/18/18 04:14 99.1 04/18/18 03:39 100.8 83 18 104/61 (75) 99 04/18/18 03:10 Room Air 21 04/18/18 03:10 Room Air 21 04/18/18 00:00 97.9 92 18 106/55 (72) 95 04/17/18 23:37 Room Air 21 04/17/18 23:37 Room Air 21 04/17/18 21:00 Room Air 04/17/18 20:18 92 18 98 Room Air 21 04/17/18 20:17 92 18 96 Room Air 21 04/17/18 20:00 99.7 85 17 108/65 (79) 96 04/17/18 16:00 101.8 77 19 123/75 (91) 96 04/17/18 15:10 81 18 99 Room Air 21 04/17/18 14:54 83 18 99 Room Air 04/17/18 12:00 99.9 110 20 105/61 (76) 95 Height (Feet): 5 Height (Inches): 5.00 Weight (Pounds): 156 Respiratory/Chest: lungs clear Cardiovascular: normal rate, regular rhythm, no gallop/murmur Abdomen: soft, non tender Extremities: no edema Microbiology Date/Time Source Procedure Growth Status 04/16/18 17:45 Nasal Nares Influenza Types A,B Antigen (GERMAN) - Final Complete 04/16/18 17:05 Urine,Clean Catch Urine Culture - Preliminary Mixed Gram Positive Organism Resulted 04/16/18 20:20 Rectum Received Laboratory Tests Test 04/18/18 07:20 White Blood Count 6.3 K/UL (4.8-10.8) Red Blood Count 4.71 M/UL (4.20-5.40) Hemoglobin 13.5 G/DL (12.0-16.0) Hematocrit 41.6 % (37.0-47.0) Mean Corpuscular Volume 88 FL (80-99) Mean Corpuscular Hemoglobin 28.6 PG (27.0-31.0) Mean Corpuscular Hemoglobin Concent 32.4 G/DL (32.0-36.0) Red Cell Distribution Width 13.2 % (11.6-14.8) Platelet Count 161 K/UL (150-450) Mean Platelet Volume 7.8 FL (6.5-10.1) Neutrophils (%) (Auto) 69.4 % (45.0-75.0) Lymphocytes (%) (Auto) 23.3 % (20.0-45.0) Monocytes (%) (Auto) 6.1 % (1.0-10.0) Eosinophils (%) (Auto) 0.1 % (0.0-3.0) Basophils (%) (Auto) 1.0 % (0.0-2.0) Sodium Level 141 MMOL/L (136-145) Potassium Level 4.0 MMOL/L (3.5-5.1) Chloride Level 105 MMOL/L (98-107) Carbon Dioxide Level 26 MMOL/L (21-32) Anion Gap 10 mmol/L (5-15) Blood Urea Nitrogen 6 mg/dL (7-18) L Creatinine 0.7 MG/DL (0.55-1.30) Estimat Glomerular Filtration Rate > 60 mL/min (>60) Glucose Level 98 MG/DL (74-106) Calcium Level 8.6 MG/DL (8.5-10.1) Total Bilirubin 0.3 MG/DL (0.2-1.0) Aspartate Amino Transf (AST/SGOT) 33 U/L (15-37) Alanine Aminotransferase (ALT/SGPT) 45 U/L (12-78) Alkaline Phosphatase 65 U/L (46-116) Total Protein 6.5 G/DL (6.4-8.2) Albumin 3.3 G/DL (3.4-5.0) L Globulin 3.2 g/dL Albumin/Globulin Ratio 1.0 (1.0-2.7) Current Medications Medications (Trade) Dose Ordered Sig/Janay Route PRN Reason Start Time Stop Time Status Last Admin Dose Admin Acetaminophen (Tylenol) 650 mg Q4H PRN ORAL Mild Pain/Temp > 100.5 04/17/18 00:00 05/17/18 00:00 04/18/18 03:44 Albuterol/ Ipratropium (Albuterol/ Ipratropium) 3 ml Q4HRT HHN 04/17/18 03:00 04/22/18 02:59 04/17/18 14:53 Azithromycin 500 mg/Dextrose 275 ml @ 275 mls/hr Q24HRS IV 04/17/18 00:00 04/23/18 00:59 04/18/18 00:36 Ceftriaxone Sodium 1 gm/ Dextrose 55 ml @ 110 mls/hr Q24H IVPB 04/17/18 19:30 04/24/18 19:29 04/17/18 20:29 Guaifenesin/ Dextromethorphan (Robitussin DM Syrup) 10 ml Q4H PRN ORAL For Cough 04/17/18 14:00 05/17/18 13:59 04/18/18 08:41 Heparin Sodium (Porcine) (Heparin 5000 units/ml) 5,000 units EVERY 12 HOURS SUBQ 04/17/18 09:00 05/17/18 08:59 04/18/18 08:41 Iopamidol (Isovue-370 150ml) 150 ml NOW PRN INJ Radiology Procedure 04/16/18 20:00 04/18/18 19:59 Pseudoephedrine HCl (Sudafed) 30 mg Q6H PRN ORAL CONGESTION 04/18/18 06:00 05/18/18 05:59 Sodium Chloride 1,000 ml @ 100 mls/hr Q10H IV 04/16/18 23:45 05/16/18 23:44 04/18/18 10:40 Albaro Barton MD Apr 18, 2018 10:47
[2018-04-18 11:45] VITALS: BP 100/58
[2018-04-18] MEDS: Cefepime HCl 2 GM in D5W 55 ML IVPB SCH ×2 (12:09→20:44)
[2018-04-18 15:33] VITALS: BP 106/70
--- NOTE | 2018-04-18 18:50 | NUR ---
NURSE NOTES left message to Dr Shepherd regarding patient concern , patient stated ''her rectal area is burning inflamed and painfull, but refused to see or do physical assessmet by RN ,she only allowed me to touch no swelling noted , patient wants medication , ynady hammer
--- NOTE | 2018-04-18 18:59 | NUR ---
nurse notes Dr shepherd called made aware regarding patient concern , no order noted, Dr Shepherd stated ok to have calmoseptine to apply on the sacral /rectum area yandy hammer
--- NOTE | 2018-04-18 19:31 | NUR ---
HAND-OFF: Report given to Ms Benjamín RN .
--- NOTE | 2018-04-18 19:40 | NUR ---
NURSE NOTES: Patient received aaox4, squirming c/o perianal irritation/burning. Asked if RN can see and assess, patient refused at this time and requested to call MD. Per patient, there are bumps in her perianal. Calazime cream ineffective per patient. Will reattempt to assess later.
[2018-04-18 20:00] VITALS: BP 111/54
--- NOTE | 2018-04-18 20:00 | NUR ---
NURSE NOTES: RN able to assess perianal area. Noted with redness with few red bumps, irritation, very tender to touch. Placed a call to Dr. Shepherd. Received order to cleanse area with soap and water, keep clean and dry and may apply lidocaine cream as needed. Will carry out orders.
--- NOTE | 2018-04-18 21:00 | NUR ---
NURSE NOTES: Patient verbalized immediate relief from lidocaine cream when applied to perianal area.
[2018-04-19] VITALS (7 sets, daily range): BP systolic 85–119; BP diastolic 44–70
[2018-04-19] MEDS: Albuterol/Ipratropium 3ml neb HHN SCH ×6 (03:34→23:03)
--- NOTE | 2018-04-19 07:18 | NUR ---
HAND-OFF: Report given to Yaneth SCHUSTER.
--- NOTE | 2018-04-19 07:25 | NUR ---
NURSE NOTES: Received patient asleep , easily arousble , no sign of respiratory distress, HL patent and intact. skin is intact. On fall precaution observed and maintained. Bed in lowest position. siderails are up for safety. Call light within reach. Will continue to monitor. yandy hammer
[2018-04-19] MEDS: NS w/KCl 20mEq 1,000 ML IV SCH ×2 (08:29→22:20)
[2018-04-19] MEDS: Cefepime HCl 2 GM in D5W 55 ML IVPB SCH ×2 (08:30→21:20)
[2018-04-19] MEDS: Heparin 5000 units/ml inj SUBQ SCH ×2 (08:33→21:00)
--- NOTE | 2018-04-19 10:31 | General Progress Note ---
Assessment/Plan Problem List: (1) Chest wall pain ICD Codes: R07.89 - Other chest pain SNOMED: 955721880 (2) Urinary tract infection ICD Codes: N39.0 - Urinary tract infection, site not specified SNOMED: 51082182 (3) Influenza-like symptoms ICD Codes: R68.89 - Other general symptoms and signs SNOMED: 838531924 (4) Bronchitis ICD Codes: J40 - Bronchitis, not specified as acute or chronic SNOMED: 98414207 (5) Hypotension ICD Codes: I95.9 - Hypotension, unspecified SNOMED: 06387063 Status: stable, not improved Assessment/Plan ivf abx follow up cultures supportive care Subjective ROS Limited/Unobtainable: No Constitutional: Reports: malaise, weakness HEENT: Reports: no symptoms Cardiovascular: Reports: no symptoms Respiratory: Reports: no symptoms Gastrointestinal/Abdominal: Reports: no symptoms Genitourinary: Reports: no symptoms Neurologic/Psychiatric: Reports: no symptoms Endocrine: Reports: no symptoms Hematologic/Lymphatic: Reports: no symptoms Allergies: Coded Allergies: No Known Allergies (Unverified , 04/15/18) All Systems: reviewed and negative except above Subjective ststill doesnt feel well. +malaise and weakness. on abx. cultures noted. on ivf Objective Last 24 Hour Vital Signs Date Time Temp Pulse Resp B/P (MAP) Pulse Ox O2 Delivery O2 Flow Rate FiO2 04/19/18 09:00 Room Air 04/19/18 08:00 97.7 79 18 89/44 (59) 93 04/19/18 07:06 Room Air 04/19/18 07:06 Room Air 04/19/18 04:00 98.2 75 19 97/52 (67) 93 04/19/18 03:35 Room Air 04/19/18 03:34 Room Air 04/19/18 00:00 98.5 93 17 119/70 (86) 96 04/18/18 23:02 79 18 100 Room Air 04/18/18 22:51 77 18 98 Room Air 04/18/18 21:00 Room Air 04/18/18 20:00 98.6 73 18 111/54 (73) 98 04/18/18 19:44 Room Air 04/18/18 19:44 Room Air 04/18/18 16:01 Room Air 21 04/18/18 16:01 Room Air 21 04/18/18 15:33 98.3 75 20 106/70 (82) 98 04/18/18 12:02 77 16 99 Room Air 21 04/18/18 11:52 74 18 98 Room Air 21 04/18/18 11:45 98.4 70 20 100/58 (72) 98 Intake and Output 04/18/18 04/19/18 18:59 06:59 Intake Total 1940 ml 1155 ml Output Total 360 ml Balance 1580 ml 1155 ml Intake Oral 960 ml IV Total 980 ml 1155 ml Output Urine Total 360 ml # Voids 5 Height (Feet): 5 Height (Inches): 5.00 Weight (Pounds): 156 General Appearance: WD/WN, alert Neck: supple Cardiovascular: normal rate, regular rhythm Respiratory/Chest: chest wall non-tender, lungs clear, normal breath sounds, no respiratory distress, no accessory muscle use Abdomen: normal bowel sounds, non tender, soft, no organomegaly Extremities: normal range of motion Edema: no edema noted Arm (L), no edema noted Arm (R), no edema noted Leg (L), no edema noted Leg (R), no edema noted Pedal (L), no edema noted Pedal (R), no edema noted Generalized Herbert Zhong MD Apr 19, 2018 10:31
--- NOTE | 2018-04-19 11:30 | Infectious Diseases Prog Note ---
Assessment/Plan Assessment/Plan antibiotics : cefepime A 1. fever improving 2. UTI 3. sinusitis P 1. continue cefepime 2. will follow up cultures Subjective Constitutional: Denies: fever, chills Respiratory: Reports: shortness of breath - decreased, dry cough - decreased Gastrointestinal/Abdominal: Denies: nausea, vomiting, diarrhea Musculoskeletal: Denies: pain Allergies: Coded Allergies: No Known Allergies (Unverified , 04/15/18) Objective Vital Signs Last 24 Hour Vital Signs Date Time Temp Pulse Resp B/P (MAP) Pulse Ox O2 Delivery O2 Flow Rate FiO2 04/19/18 09:00 Room Air 04/19/18 08:00 97.7 79 18 89/44 (59) 93 04/19/18 07:06 Room Air 21 04/19/18 07:06 Room Air 04/19/18 04:00 98.2 75 19 97/52 (67) 93 04/19/18 03:35 Room Air 21 04/19/18 03:34 Room Air 04/19/18 00:00 98.5 93 17 119/70 (86) 96 04/18/18 23:02 79 18 100 Room Air 21 04/18/18 22:51 77 18 98 Room Air 21 04/18/18 21:00 Room Air 04/18/18 20:00 98.6 73 18 111/54 (73) 98 04/18/18 19:44 Room Air 21 04/18/18 19:44 Room Air 21 04/18/18 16:01 Room Air 21 04/18/18 16:01 Room Air 21 04/18/18 15:33 98.3 75 20 106/70 (82) 98 04/18/18 12:02 77 16 99 Room Air 21 04/18/18 11:52 74 18 98 Room Air 04/18/18 11:45 98.4 70 20 100/58 (72) 98 Height (Feet): 5 Height (Inches): 5.00 Weight (Pounds): 156 Respiratory/Chest: lungs clear Cardiovascular: normal rate, regular rhythm, no gallop/murmur Abdomen: soft, non tender Extremities: no edema Microbiology Date/Time Source Procedure Growth Status 04/16/18 20:20 Nasal Nares MRSA Culture - Final NO METHICILLIN RESISTANT STAPH AUREUS... Complete 04/16/18 17:45 Nasal Nares Influenza Types A,B Antigen (GERMAN) - Final Complete 04/16/18 17:05 Urine,Clean Catch Urine Culture - Final Mixed Gram Positive Organism Complete 04/17/18 20:20 Rectum VRE Culture - Final NO VANCOMYCIN RESISTANT ENTEROCOCCUS ... Complete 04/16/18 20:20 Rectum - Final NO CARBAPENEM-RESISTANT ENTEROBACTERI... Complete Current Medications Medications (Trade) Dose Ordered Sig/Janay Route PRN Reason Start Time Stop Time Status Last Admin Dose Admin Acetaminophen (Tylenol) 650 mg Q4H PRN ORAL Mild Pain/Temp > 100.5 04/17/18 00:00 05/17/18 00:00 04/18/18 03:44 Albuterol/ Ipratropium (Albuterol/ Ipratropium) 3 ml Q4HRT HHN 04/17/18 03:00 04/22/18 02:59 04/18/18 22:49 Cefepime HCl 2 gm/ Dextrose 55 ml @ 110 mls/hr EVERY 12 HOURS IVPB 04/18/18 12:00 04/25/18 11:59 04/19/18 08:30 Guaifenesin/ Dextromethorphan (Robitussin DM Syrup) 10 ml Q4H PRN ORAL For Cough 04/17/18 14:00 05/17/18 13:59 04/18/18 08:41 Heparin Sodium (Porcine) (Heparin 5000 units/ml) 5,000 units EVERY 12 HOURS SUBQ 04/17/18 09:00 05/17/18 08:59 04/18/18 20:43 Lidocaine (Xylocaine 5% cream) 1 applic QIDPRN PRN TOPIC ANAL BURNING 04/18/18 20:00 05/18/18 19:59 04/18/18 20:41 Pseudoephedrine HCl (Sudafed) 30 mg Q6H PRN ORAL CONGESTION 04/18/18 06:00 05/18/18 05:59 Sodium Chloride 1,000 ml @ 100 mls/hr Q10H IV 04/16/18 23:45 05/16/18 23:44 04/19/18 08:29 Albaro Barton MD Apr 19, 2018 11:30
--- NOTE | 2018-04-19 19:15 | NUR ---
HAND-OFF: Report given to Randy SCHUSTER.
--- NOTE | 2018-04-19 20:02 | NUR ---
NURSE NOTES: Patient in bed, awake, alert and verbally responsive. Able to make needs known. no complaint of pain or discomfort at this time. Kept clean and comfortable. Skin is warm and dry to touch. Abdomen is soft and non distended. IV site is patent, iv fluid is infusing as ordered. Bed in low and locked position. Call light is at bedside. Will continue plan of care.
[2018-04-20] VITALS: BP 105/60
[2018-04-20] MEDS: Albuterol/Ipratropium 3ml neb HHN SCH ×6 (02:53→23:02)
[2018-04-20 04:00] VITALS: BP 95/59
--- NOTE | 2018-04-20 07:15 | NUR ---
HAND-OFF: Report given to MAGED Kruse.
--- NOTE | 2018-04-20 07:30 | NUR ---
NURSE NOTES: received patient A/A/Ox4, in bed lying calm and comfortable. No acute resp distress noted. denies of pain/discomfort. ambulates. On IVF and infusing well. bed is in the lowest position. siderails are up x2 and call light is within reach. will cont to monitor.
[2018-04-20] MEDS: NS w/KCl 20mEq 1,000 ML IV SCH ×3 (07:45→23:55)
[2018-04-20 08:00] VITALS: BP 95/57
--- NOTE | 2018-04-20 08:40 | NUR ---
NURSE NOTES: Received awake, in bed. With no SOB. Denies any pain at this time. All needs attended. Will cont to monitor. Call light made within reach.
[2018-04-20] MEDS: Heparin 5000 units/ml inj SUBQ SCH ×2 (09:00→21:12)
[2018-04-20] MEDS: Cefepime HCl 2 GM in D5W 55 ML IVPB SCH ×2 (09:00→21:04)
[2018-04-20 09:02] LABS: BASOPHILS % (AUTO) 0.9 % (0.0-2.0); EOSINOPHILS % (AUTO) 1.8 % (0.0-3.0); HEMATOCRIT 42.7 % (37.0-47.0); HEMOGLOBIN 13.8 G/DL (12.0-16.0); LYMPHOCYTES % (AUTO) 50.9 % (20.0-45.0); MEAN CORPUSCULAR VOLUME 88 FL (80-99); NEUTROPHILS % (AUTO) 32.4 % (45.0-75.0); PLATELET COUNT 161 K/UL (150-450); RED BLOOD COUNT 4.83 M/UL (4.20-5.40); RED CELL DISTRIBUTION WIDTH 13.2 % (11.6-14.8); WHITE BLOOD COUNT 3.6 K/UL (4.8-10.8)
--- NOTE | 2018-04-20 09:05 | General Progress Note ---
Assessment/Plan Problem List: (1) Chest wall pain ICD Codes: R07.89 - Other chest pain SNOMED: 740878558 (2) Urinary tract infection ICD Codes: N39.0 - Urinary tract infection, site not specified SNOMED: 21847890 (3) Influenza-like symptoms ICD Codes: R68.89 - Other general symptoms and signs SNOMED: 053089044 (4) Bronchitis ICD Codes: J40 - Bronchitis, not specified as acute or chronic SNOMED: 95172371 (5) Hypotension ICD Codes: I95.9 - Hypotension, unspecified SNOMED: 43189829 Status: stable, progressing Assessment/Plan ivf abx follow up cultures supportive care Subjective ROS Limited/Unobtainable: No Constitutional: Reports: malaise, weakness HEENT: Reports: no symptoms Cardiovascular: Reports: no symptoms Respiratory: Reports: cough Gastrointestinal/Abdominal: Reports: no symptoms Genitourinary: Reports: no symptoms Neurologic/Psychiatric: Reports: no symptoms Endocrine: Reports: no symptoms Hematologic/Lymphatic: Reports: no symptoms Allergies: Coded Allergies: No Known Allergies (Unverified , 04/15/18) All Systems: reviewed and negative except above Subjective no change. feels the "same." not really feeling better. per staff walks around the unit during the day Objective Last 24 Hour Vital Signs Date Time Temp Pulse Resp B/P (MAP) Pulse Ox O2 Delivery O2 Flow Rate FiO2 04/20/18 07:20 Room Air 04/20/18 07:19 Room Air 04/20/18 04:00 97.4 79 18 95/59 (71) 98 04/20/18 03:03 78 16 98 Room Air 04/20/18 02:53 94 16 99 Room Air 04/20/18 00:00 98.2 84 18 105/60 (75) 97 04/19/18 23:16 75 20 99 Room Air 04/19/18 23:03 85 20 98 Room Air 04/19/18 21:00 Room Air 04/19/18 20:00 97.7 82 18 101/69 (80) 98 04/19/18 18:52 Room Air 04/19/18 16:00 98.6 69 17 100/64 (76) 98 04/19/18 15:00 Room Air 21 04/19/18 15:00 Room Air 21 04/19/18 12:08 72 106/68 (81) 04/19/18 11:57 98.1 64 18 85/48 (60) 98 04/19/18 11:15 Room Air 21 04/19/18 11:15 Room Air 21 Intake and Output 04/19/18 04/20/18 18:59 06:59 Intake Total 1505 ml 1255 ml Balance 1505 ml 1255 ml Intake Oral 600 ml IV Total 955 ml 655 ml Other 550 ml # Voids 4 Laboratory Tests 04/20/18 08:10: White Blood Count [Pending], Red Blood Count [Pending], Hemoglobin [Pending], Hematocrit [Pending], Mean Corpuscular Volume [Pending], Mean Corpuscular Hemoglobin [Pending], Mean Corpuscular Hemoglobin Concent [Pending], Red Cell Distribution Width [Pending], Platelet Count [Pending], Mean Platelet Volume [ Pending], Neutrophils (%) (Auto) [Pending], Lymphocytes (%) (Auto) [Pending], Monocytes (%) (Auto) [Pending], Eosinophils (%) (Auto) [Pending], Basophils (%) (Auto) [Pending], Sodium Level [Pending], Potassium Level [Pending], Chloride Level [Pending], Carbon Dioxide Level [Pending], Blood Urea Nitrogen [Pending], Creatinine [Pending], Estimat Glomerular Filtration Rate [Pending], Glucose Level [Pending], Calcium Level [Pending], Total Bilirubin [Pending], Aspartate Amino Transf (AST/SGOT) [Pending], Alanine Aminotransferase (ALT/SGPT) [Pending] , Alkaline Phosphatase [Pending], Total Protein [Pending], Albumin [Pending], Globulin [Pending] Height (Feet): 5 Height (Inches): 5.00 Weight (Pounds): 156 Objective General Appearance: WD/WN, alert Neck: supple Cardiovascular: normal rate, regular rhythm Respiratory/Chest: chest wall non-tender, lungs clear, normal breath sounds, no respiratory distress, no accessory muscle use Abdomen: normal bowel sounds, non tender, soft, no organomegaly Extremities: normal range of motion Edema: no edema noted Arm (L), no edema noted Arm (R), no edema noted Leg (L), no edema noted Leg (R), no edema noted Pedal (L), no edema noted Pedal (R), no edema noted Generalized Herbert Zhong MD Apr 20, 2018 09:05
[2018-04-20 09:08] LABS: ALANINE AMINOTRANSFERASE 33 U/L (12-78); ALBUMIN 3.3 G/DL (3.4-5.0); ALKALINE PHOSPHATASE 58 U/L (46-116); ANION GAP 8 mmol/L (5-15); ASPARTATE AMINO TRANSFERASE 20 U/L (15-37); BILIRUBIN,TOTAL 0.2 MG/DL (0.2-1.0); BLOOD UREA NITROGEN 5 mg/dL (7-18); CALCIUM 8.7 MG/DL (8.5-10.1); CARBON DIOXIDE 27 MMOL/L (21-32); CHLORIDE 106 MMOL/L (98-107); CREATININE 0.6 MG/DL (0.55-1.30); SODIUM 140 MMOL/L (136-145)
[2018-04-20 12:00] VITALS: BP 103/68
--- NOTE | 2018-04-20 12:18 | Infectious Diseases Prog Note ---
Assessment/Plan Assessment/Plan A 1. fever improving 2. UTI 3. sinusitis P 1. continue cefepime 2. At time of discharge PO Augmentin Subjective ROS Limited/Unobtainable: No Constitutional: Reports: no symptoms HEENT: Reports: other - resolved headache Respiratory: Reports: dry cough Cardiovascular: Reports: no symptoms Gastrointestinal/Abdominal: Reports: no symptoms Genitourinary: Reports: no symptoms Allergies: Coded Allergies: No Known Allergies (Unverified , 04/15/18) Objective Vital Signs Last 24 Hour Vital Signs Date Time Temp Pulse Resp B/P (MAP) Pulse Ox O2 Delivery O2 Flow Rate FiO2 04/20/18 10:58 Room Air 21 04/20/18 10:57 Room Air 21 04/20/18 09:00 Room Air 04/20/18 08:00 97.3 71 18 95/57 (70) 98 04/20/18 07:20 Room Air 04/20/18 07:19 Room Air 04/20/18 04:00 97.4 79 18 95/59 (71) 98 04/20/18 03:03 78 16 98 Room Air 04/20/18 02:53 94 16 99 Room Air 04/20/18 00:00 98.2 84 18 105/60 (75) 97 04/19/18 23:16 75 20 99 Room Air 04/19/18 23:03 85 20 98 Room Air 04/19/18 21:00 Room Air 04/19/18 20:00 97.7 82 18 101/69 (80) 98 04/19/18 18:52 Room Air 04/19/18 16:00 98.6 69 17 100/64 (76) 98 04/19/18 15:00 Room Air 21 04/19/18 15:00 Room Air 21 Height (Feet): 5 Height (Inches): 5.00 Weight (Pounds): 156 General Appearance: no acute distress HEENT: mucous membranes moist Respiratory/Chest: normal breath sounds Cardiovascular: normal rate Abdomen: soft, non tender Extremities: no edema Neurologic/Psychiatric: alert, oriented x 3, responsive Microbiology Date/Time Source Procedure Growth Status 04/17/18 20:20 Rectum VRE Culture - Final NO VANCOMYCIN RESISTANT ENTEROCOCCUS ... Complete Laboratory Tests Test 04/20/18 08:10 White Blood Count 3.6 K/UL (4.8-10.8) L Red Blood Count 4.83 M/UL (4.20-5.40) Hemoglobin 13.8 G/DL (12.0-16.0) Hematocrit 42.7 % (37.0-47.0) Mean Corpuscular Volume 88 FL (80-99) Mean Corpuscular Hemoglobin 28.5 PG (27.0-31.0) Mean Corpuscular Hemoglobin Concent 32.3 G/DL (32.0-36.0) Red Cell Distribution Width 13.2 % (11.6-14.8) Platelet Count 161 K/UL (150-450) Mean Platelet Volume 8.1 FL (6.5-10.1) Neutrophils (%) (Auto) 32.4 % (45.0-75.0) L Lymphocytes (%) (Auto) 50.9 % (20.0-45.0) H Monocytes (%) (Auto) 14.0 % (1.0-10.0) H Eosinophils (%) (Auto) 1.8 % (0.0-3.0) Basophils (%) (Auto) 0.9 % (0.0-2.0) Sodium Level 140 MMOL/L (136-145) Potassium Level 4.0 MMOL/L (3.5-5.1) Chloride Level 106 MMOL/L (98-107) Carbon Dioxide Level 27 MMOL/L (21-32) Anion Gap 8 mmol/L (5-15) Blood Urea Nitrogen 5 mg/dL (7-18) L Creatinine 0.6 MG/DL (0.55-1.30) Estimat Glomerular Filtration Rate > 60 mL/min (>60) Glucose Level 94 MG/DL (74-106) Calcium Level 8.7 MG/DL (8.5-10.1) Total Bilirubin 0.2 MG/DL (0.2-1.0) Aspartate Amino Transf (AST/SGOT) 20 U/L (15-37) Alanine Aminotransferase (ALT/SGPT) 33 U/L (12-78) Alkaline Phosphatase 58 U/L (46-116) Total Protein 6.6 G/DL (6.4-8.2) Albumin 3.3 G/DL (3.4-5.0) L Globulin 3.3 g/dL Albumin/Globulin Ratio 1.0 (1.0-2.7) Current Medications Medications (Trade) Dose Ordered Sig/Janay Route PRN Reason Start Time Stop Time Status Last Admin Dose Admin Acetaminophen (Tylenol) 650 mg Q4H PRN ORAL Mild Pain/Temp > 100.5 04/17/18 00:00 05/17/18 00:00 04/18/18 03:44 Albuterol/ Ipratropium (Albuterol/ Ipratropium) 3 ml Q4HRT HHN 04/17/18 03:00 04/22/18 02:59 04/20/18 02:53 Cefepime HCl 2 gm/ Dextrose 55 ml @ 110 mls/hr EVERY 12 HOURS IVPB 04/18/18 12:00 04/25/18 11:59 04/20/18 09:00 Guaifenesin/ Dextromethorphan (Robitussin DM Syrup) 10 ml Q4H PRN ORAL For Cough 04/17/18 14:00 05/17/18 13:59 04/18/18 08:41 Heparin Sodium (Porcine) (Heparin 5000 units/ml) 5,000 units EVERY 12 HOURS SUBQ 04/17/18 09:00 05/17/18 08:59 04/18/18 20:43 Lidocaine (Xylocaine 5% cream) 1 applic QIDPRN PRN TOPIC ANAL BURNING 04/18/18 20:00 05/18/18 19:59 04/19/18 16:52 Pseudoephedrine HCl (Sudafed) 30 mg Q6H PRN ORAL CONGESTION 04/18/18 06:00 05/18/18 05:59 Sodium Chloride 1,000 ml @ 100 mls/hr Q10H IV 04/16/18 23:45 05/16/18 23:44 04/20/18 07:45 Narendra Chowdhury MD Apr 20, 2018 12:18
[2018-04-20 16:00] VITALS: BP 118/62
--- NOTE | 2018-04-20 18:48 | NUR ---
NURSE NOTES: patient is up and about and walked in the hallway with a steady gait. NO coughing noted. had a bm today. given tylenolm for mild h/a. reassesed. call light is within reach. kept bed in the lowest position. will cont to monitor.
--- NOTE | 2018-04-20 19:02 | NUR ---
HAND-OFF: Report given to Patricia.
--- NOTE | 2018-04-20 19:46 | NUR ---
NURSE NOTES: Received patient in bed. On RA, no SOB, no acute distress, no c/o pain. IV on RH intact, patent running IVF. Patient is A/O x 4, in calm mood. Bed in lowest position, locked, alarms on. Call light in reach.
[2018-04-20 20:00] VITALS: BP 103/64
[2018-04-21] VITALS: BP 99/63
[2018-04-21] MEDS: Albuterol/Ipratropium 3ml neb HHN SCH ×6 (03:00→22:26)
[2018-04-21 04:00] VITALS: BP 95/59
--- NOTE | 2018-04-21 07:40 | NUR ---
NURSE NOTES: Received patient from LANDEN Gomez. Patient in bed, in room air, not in respiratory distress. No pain, peripheral line on right hand, patent, bed in the lowest position, locked, call light is within reach, will continue to monitor patient.
--- NOTE | 2018-04-21 07:42 | NUR ---
HAND-OFF: Report given to David SCHUSTER.
--- NOTE | 2018-04-21 07:52 | NUR ---
NURSE NOTES: Received patient from Patricia SCHUSTER, patient is resting in bed, no distress noted, bed is locked and in lowest position, call light within reach, will continue to monitor with Martina SCHUSTER.
[2018-04-21 08:00] VITALS: BP 101/56
[2018-04-21] MEDS: Heparin 5000 units/ml inj SUBQ SCH ×2 (09:34→20:28)
[2018-04-21] MEDS: Cefepime HCl 2 GM in D5W 55 ML IVPB SCH (09:37)
--- NOTE | 2018-04-21 11:10 | Infectious Diseases Prog Note ---
Assessment/Plan Assessment/Plan antibiotics : cefepime A 1. fever improving 2. UTI 3. sinusitis P 1. d/c cefepime 2. start and continue po augmentin 4 more days 3. will follow up cultures Subjective Constitutional: Denies: fever, chills Respiratory: Reports: dry cough; Denies: shortness of breath Gastrointestinal/Abdominal: Reports: nausea; Denies: vomiting, diarrhea Neurologic: Reports: headache Allergies: Coded Allergies: No Known Allergies (Unverified , 04/15/18) Objective Vital Signs Last 24 Hour Vital Signs Date Time Temp Pulse Resp B/P (MAP) Pulse Ox O2 Delivery O2 Flow Rate FiO2 04/21/18 10:49 Room Air 21 04/21/18 10:48 Room Air 21 04/21/18 09:00 Room Air 04/21/18 08:00 97.9 75 20 101/56 (71) 97 04/21/18 07:45 Room Air 21 04/21/18 07:45 Room Air 04/21/18 04:00 97.4 76 17 95/59 (71) 97 04/21/18 03:00 Room Air 21 04/21/18 03:00 Room Air 21 04/21/18 00:00 97.5 80 18 99/63 (75) 96 04/20/18 23:16 81 16 100 Room Air 21 04/20/18 23:03 80 16 96 Room Air 04/20/18 21:00 Room Air 04/20/18 20:02 86 16 99 Room Air 21 04/20/18 20:00 97.5 77 18 103/64 (77) 98 04/20/18 19:51 78 16 95 Room Air 04/20/18 18:03 97.7 04/20/18 16:00 97.7 77 18 118/62 (80) 100 04/20/18 15:09 Room Air 04/20/18 15:09 Room Air 04/20/18 12:00 97.8 79 19 103/68 (80) 97 Height (Feet): 5 Height (Inches): 5.00 Weight (Pounds): 156 Respiratory/Chest: lungs clear Cardiovascular: normal rate, regular rhythm, no gallop/murmur Abdomen: soft, non tender Extremities: no edema Current Medications Medications (Trade) Dose Ordered Sig/Janay Route PRN Reason Start Time Stop Time Status Last Admin Dose Admin Acetaminophen (Tylenol) 650 mg Q4H PRN ORAL Mild Pain/Temp > 100.5 04/17/18 00:00 05/17/18 00:00 04/20/18 17:33 Albuterol/ Ipratropium (Albuterol/ Ipratropium) 3 ml Q4HRT HHN 04/17/18 03:00 04/22/18 02:59 04/20/18 23:02 Cefepime HCl 2 gm/ Dextrose 55 ml @ 110 mls/hr EVERY 12 HOURS IVPB 04/18/18 12:00 04/25/18 11:59 04/21/18 09:37 Guaifenesin/ Dextromethorphan (Robitussin DM Syrup) 10 ml Q4H PRN ORAL For Cough 04/17/18 14:00 05/17/18 13:59 04/18/18 08:41 Heparin Sodium (Porcine) (Heparin 5000 units/ml) 5,000 units EVERY 12 HOURS SUBQ 04/17/18 09:00 05/17/18 08:59 04/21/18 09:34 Lidocaine (Xylocaine 5% cream) 1 applic QIDPRN PRN TOPIC ANAL BURNING 04/18/18 20:00 05/18/18 19:59 04/19/18 16:52 Pseudoephedrine HCl (Sudafed) 30 mg Q6H PRN ORAL CONGESTION 04/18/18 06:00 05/18/18 05:59 Sodium Chloride 1,000 ml @ 100 mls/hr Q10H IV 04/16/18 23:45 05/16/18 23:44 04/20/18 23:55 Albaro Barton MD Apr 21, 2018 11:10
[2018-04-21 12:00] VITALS: BP 116/67
[2018-04-21] MEDS: Augmentin 875mg Tab ORAL SCH ×2 (12:56→20:23)
[2018-04-21] MEDS: NS w/KCl 20mEq 1,000 ML IV SCH ×2 (13:06→23:37)
[2018-04-21 16:00] VITALS: BP 93/53
--- NOTE | 2018-04-21 19:13 | NUR ---
HAND-OFF: Report given to LANDEN Gomez.
--- NOTE | 2018-04-21 19:19 | NUR ---
RESPIRATORY NOTE: pt refused breathing tx at this time. wants me to return for her next scheduled tx. RNDavid
--- NOTE | 2018-04-21 19:49 | NUR ---
NURSE NOTES: Received patient in bed. On RA, no SOB, no acute distress, no c/o pain. In calm mood. IV on RH intact, patent running fluid with KCL. Bed in lowest position, locked, alarms on. Call light in reach.
[2018-04-21 20:00] VITALS: BP 103/56
[2018-04-22] VITALS: BP 110/68
--- NOTE | 2018-04-22 03:15 | Progress Note ---
DATE: 04/21/2018 INTERNAL MEDICINE PROGRESS NOTE SUBJECTIVE: The patient has defervesced low-grade temperatures yesterday. No fever today. OBJECTIVE: VITAL SIGNS: Blood pressure 101/56, pulse 75, respiratory rate 20, afebrile. HEENT: Oropharynx clear with no thrush. LUNGS: Still with dry cough. No shortness of breath. Lungs clear. No sinus tenderness. CARDIAC: Regular with no murmur. EXTREMITIES: Without edema. IMPRESSION: 1. UTI. 2. Sinusitis. 3. Upper respiratory infection. PLAN: 1. ID follow up. 2. Anticipate narrowing antimicrobial with subsequent discharge if tolerated. Pranav Shepherd M.D. DR: OCURT JOB#: [id number] CC:
[2018-04-22 04:00] VITALS: BP 110/57
--- NOTE | 2018-04-22 07:50 | NUR ---
HAND-OFF: Report given to Marlys Man RN.
--- NOTE | 2018-04-22 07:55 | NUR ---
NURSE NOTES: Patient is awake, alert and oriented X4, able to make needs known, No acute distress noted, No c/o pain or any discomfort noted at this time, Bed in lowest position and locked, Call light and needs within reach, Will continue to monitor.
[2018-04-22 08:00] VITALS: BP 94/56
[2018-04-22] MEDS: Augmentin 875mg Tab ORAL SCH (09:24)
[2018-04-22] MEDS: Heparin 5000 units/ml inj SUBQ SCH (09:25)
[2018-04-22] MEDS: NS w/KCl 20mEq 1,000 ML IV SCH (09:30)
--- NOTE | 2018-04-22 10:13 | Infectious Diseases Prog Note ---
Assessment/Plan Assessment/Plan antibiotics : augmentin A 1. fever improving 2. UTI 3. sinusitis P 1. continue po augmentin 3 more days 2. will follow up cultures Subjective Constitutional: Denies: fever, chills Respiratory: Reports: dry cough - decreased; Denies: shortness of breath Gastrointestinal/Abdominal: Denies: nausea, vomiting, diarrhea Neurologic: Reports: headache - decreased Allergies: Coded Allergies: No Known Allergies (Unverified , 04/15/18) Objective Vital Signs Last 24 Hour Vital Signs Date Time Temp Pulse Resp B/P (MAP) Pulse Ox O2 Delivery O2 Flow Rate FiO2 04/22/18 09:00 Room Air 04/22/18 08:00 97.5 77 18 94/56 (69) 98 04/22/18 04:00 97.8 81 18 110/57 (74) 98 04/22/18 03:01 Room Air 21 04/22/18 02:59 Room Air 04/22/18 01:03 95 18 99 Room Air 04/22/18 00:52 78 18 99 Room Air 04/22/18 00:00 97.8 79 18 110/68 (82) 100 04/21/18 21:00 Room Air 04/21/18 20:00 97.4 76 18 103/56 (72) 98 04/21/18 19:20 Room Air 21 04/21/18 19:20 Room Air 21 04/21/18 16:00 98.2 73 20 93/53 (66) 97 04/21/18 14:22 Room Air 21 04/21/18 14:22 Room Air 21 04/21/18 12:00 98.6 76 20 116/67 (83) 98 04/21/18 10:49 Room Air 21 04/21/18 10:48 Room Air 21 Height (Feet): 5 Height (Inches): 5.00 Weight (Pounds): 156 Respiratory/Chest: lungs clear Cardiovascular: normal rate, regular rhythm, no gallop/murmur Abdomen: soft, non tender Extremities: no edema Current Medications Medications (Trade) Dose Ordered Sig/Janay Route PRN Reason Start Time Stop Time Status Last Admin Dose Admin Acetaminophen (Tylenol) 650 mg Q4H PRN ORAL Mild Pain/Temp > 100.5 04/17/18 00:00 05/17/18 00:00 04/20/18 17:33 Albuterol/ Ipratropium (Albuterol/ Ipratropium) 3 ml Q4HRT HHN 04/22/18 11:00 04/27/18 10:59 Amoxicillin/ Clavulanate Potassium (Augmentin) 875 mg EVERY 12 HOURS ORAL 04/21/18 11:14 04/28/18 11:13 04/22/18 09:24 Guaifenesin/ Dextromethorphan (Robitussin DM Syrup) 10 ml Q4H PRN ORAL For Cough 04/17/18 14:00 05/17/18 13:59 04/18/18 08:41 Heparin Sodium (Porcine) (Heparin 5000 units/ml) 5,000 units EVERY 12 HOURS SUBQ 04/17/18 09:00 05/17/18 08:59 04/22/18 09:25 Lidocaine (Xylocaine 5% cream) 1 applic QIDPRN PRN TOPIC ANAL BURNING 04/18/18 20:00 05/18/18 19:59 04/19/18 16:52 Pseudoephedrine HCl (Sudafed) 30 mg Q6H PRN ORAL CONGESTION 04/18/18 06:00 05/18/18 05:59 Sodium Chloride 1,000 ml @ 100 mls/hr Q10H IV 04/16/18 23:45 05/16/18 23:44 04/22/18 09:30 Albaro Barton MD Apr 22, 2018 10:13
[2018-04-22] MEDS ORDERED: Albuterol/Ipratropium 3ml neb HHN SCH ×2 (11:00→13:00)
[2018-04-22 12:00] VITALS: BP 102/55
--- NOTE | 2018-04-22 12:00 | NUR ---
*-* NO INSURANCE INFO IN THE BAR TO FAX CLINICALS OR REVIEW *-* NOTE IN BAR: (I ASKED HER IF A F/S OR CLINICALS WERE REQUIRED...NOT REQD AT THIS TIME... NO FAX# OBT)
--- NOTE | 2018-04-22 14:51 | NUR ---
RD ASSESSMENT & RECOMMENDATIONS SEE CARE ACTIVITY FOR COMPLETE ASSESSMENT DAILY ESTIMATED NEEDS: Needs based on pulmonary 67kg 25-30 kcals/kg total kcals 1-1.5 g protein/kg 67-101 g total protein 25-30 mL/kg total fluid mLs NUTRITION DIAGNOSIS: Altered nutrition related lab values r/t clinical status as evidenced by low WBC (3.6). CURRENT DIET:Regular PO DIET RECOMMENDATIONS: Regular diet as tolerated ADDITIONAL RECOMMENDATIONS: 1) Obtain a standing weight as able 2) Add snacks in b/w meals w/ con't variable po intake
[2018-04-22] MEDS ORDERED: AUGMENTIN 875-1 EAC1 ORAL (15:44)
--- NOTE | 2018-04-22 17:00 | NUR ---
NURSE NOTES: Patient discharged to home accompanied by her brother in a private car. Prior to discharge, patient was stable and v/S stable and seen by Dr. Shepherd. Discharge instruction given to the patient and prescription given to the patient. Patient will go to pharmacy to fill med and will continue antibiotics as prescribed. Patient knows when to seek medical attention. Patient denies any chest pain, burning sensation when she urinates. Afebrile. All belongings accounted for. IV and ID was removed. Skin intact.
--- NOTE | 2018-04-23 09:16 | Discharge Summary ---
Discharge Summary Discharge Summary _ DATE OF ADMISSION: 04/16/2018 DATE OF DISCHARGE: 04/22/2018 DISCHARGED BY: REASON FOR ADMISSION: 28 years old female without significant past medical history, presented to emergency department with worsening cough and congestion. Patient was seen in the emergency room day prior to admission and was sent home on oral therapy. However her symptoms were ongoing for 3 days and not improved. Patient reported fevers, congestion , cough with scant sputum production. Patient also reported sore throat. She denied abdominal pain, nausea , vomiting. She denied diarrhea. Upon evaluation patient demonstrated low-grade fever of 100.2 , mild tachypnea and low blood pressure. Pulse oximetry was stable on room air. Laboratory workup revealed no leukocytosis , stable hemoglobin hematocrit, stable electrolytes and renal parameters. Urinalysis revealed gross evidence of UTI. Urine test was negative. Chest x-ray revealed no acute cardiopulmonary pathology. CT chest angiogram was negative for acute pulmonary emboli or other acute thoracic pathology. Noted dependent atelectatic changes. Patient was admitted for further management CONSULTANTS: ID specialist Dr. Barton HOSPITAL COURSE: Patient admitted to medical surgical floor. Patient started on the IV fluids. Patient was pancultured and started on broad-spectrum antibiotic. Antipyretics, antitussives and decongestants provided on as needed basis. ID specialist closely followed. Influenza screen test was negative. Supplemental oxygen provided as needed to keep pulse oximetry above 92%. Pulmonary toilet was on standby as needed. Pulse oximetry was stable on room air. CT of the maxillofacial sinuses revealed minimal right maxillary and anterior ethmoid sinus mucosal thickening. There was mucosal thickening in the region of the bilateral maxillary ostia, and patency of these structures could not be confirmed Antibiotic regimen optimized as per ID specialist recommendation. Patient clinically stabilized. Fevers resolved. Patient was stable for discharge home , continue Augmentin for additional 3 days as per ID specialist recommendation. FINAL DIAGNOSES: Upper respiratory infection Probably viral syndrome Acute bronchitis Sinusitis Urinary tract infection Dehydration with hypovolemia DISCHARGE MEDICATIONS: See Medication Reconciliation list. DISCHARGE INSTRUCTIONS: Patient was discharged home. Follow up with primary care provider in one week. I have been assigned to dictate discharge summary for this account. I was not involved in the patient's management. Cleo Powers NP Apr 23, 2018 09:16
== END 2018-04-22 17:15 | disposition home or self-care (01) | DRG 202 ==
LOC: EMR 17:09 → 4E 20:04 → EDBEDREQSVC 20:45 → EDBEDREQ 20:45 → EDBEDREQSVC 21:49 → EDBEDREQ 21:49
DX: J20.9 Acute bronchitis, unspecified (principal); N39.0 Urinary tract infection, site not specified; E44.1 Mild protein-calorie malnutrition; J01.90 Acute sinusitis, unspecified; E86.0 Dehydration; I95.9 Hypotension, unspecified; Z68.26 Body mass index [BMI] 26.0-26.9, adult; B34.9 Viral infection, unspecified
CPT/HCPCS: 36415; 70486; 71045; 71275; 80053; 81003; 81025; 84443; 85025; 86710; 87081; 87086; 93005; 94640; 94664; 96361; 96365; 99285; J7620